=== PATIENT | female | born 1940 | race Caucasian/White ===

== ENCOUNTER → 2016-07-06 | Outpatient (CLI) | payer OTHER, BC | LOC: FIMAGING 10:20 | PROVIDERS: ATTEND Internal Medicine Hematology & Oncology | DX: R92.0 Mammographic microcalcification found on diagnostic imaging of breast (principal); Z86.000 Personal history of in-situ neoplasm of breast | CPT/HCPCS: G0206 ==

== ENCOUNTER → 2016-10-01 | Outpatient (CLI) | payer OTHER, BC | LOC: FIMAGING 09:23 | PROVIDERS: ATTEND Internal Medicine Hematology & Oncology | DX: R92.0 Mammographic microcalcification found on diagnostic imaging of breast (principal); R59.9 Enlarged lymph nodes, unspecified | CPT/HCPCS: G0204 ==

== ENCOUNTER → 2017-01-06 | Outpatient (CLI) | payer OTHER, BC | LOC: FIMAGING 11:19 | PROVIDERS: ATTEND Internal Medicine Hematology & Oncology | DX: Z12.39 Encounter for other screening for malignant neoplasm of breast (principal); R92.0 Mammographic microcalcification found on diagnostic imaging of breast | CPT/HCPCS: 90662; G0008; G0206; G0463 ==

== ENCOUNTER 2017-01-07 23:43 | Observation (INO) | payer OTHER, BC ==
--- NOTE | 2017-01-07 23:47 | EDPHY ---
H & P HPI/ROS: HPI CHIEF COMPLAINT: Chest pain, pleuritic pain HISTORY OF PRESENT ILLNESS: This patient very pleasant 76-year-old female, she does have significant history of hyperlipidemia, breast cancer, Lyme disease, she presents emergency room with chest discomfort. States over the last 7-10 days she has had pain in her chest worse when she takes deep breath in. It is substernal. Sometimes it radiates to her neck and left shoulder. Tonight she was resting. She has been noticing the pain rather frequently. However she took her blood pressure noticed that was elevated 140s over 100. She normally runs 105 systolic. Additionally tells me heart rate is 120. She tells me are rate normally runs 70s. Given the constellation of the symptoms she became concerned and came to the emergency room. She denies productive cough, fever. Does endorse pleuritic pain. Past Medical History: Hyperlipidemia, Lyme disease, breast cancer Past Surgical History: No recent surgery right breast lumpectomy Social History: Denies daily use drugs alcohol tobacco products. Family History: Family history of cardiac disease ROS REVIEW OF SYSTEMS: A comprehensive 10 point review of systems is otherwise negative aside from elements mentioned in the history of present illness. Exam Constitutional triage nursing summary reviewed, vital signs reviewed, awake/ alert. Eyes normal conjunctivae and sclera, EOMI, PERRLA. HENT normal inspection, atraumatic, moist mucus membranes, no epistaxis, neck supple/ no meningismus, no raccoon eyes. Respiratory clear to auscultation bilaterally, normal breath sounds, no respiratory distress, no wheezing. Cardiovascular rate normal, regular rhythm, no murmur, no edema, distal pulses normal. Gastrointestinal soft, non-tender, no rebound, no guarding, normal bowel sounds, no distension, no pulsatile mass. Genitourinary no CVA tenderness. Musculoskeletal no midline vertebral tenderness, full range of motion, no calf swelling, no tenderness of extremities, no meningismus, good pulses, neurovascularly intact. Skin pink, warm, & dry, no rash, skin atraumatic. Neurologic awake, alert and oriented x 3, AAOx3, moves all 4 extremities equally, motor intact, sensory intact, CN II-XII intact, normal cerebellar, normal vision, normal speech. Psychiatric normal mood/affect. Heme/Lymph/Immune no lymphadenopathy. Differential diagnosis includes but is not limited to: ACS, atypical chest pain , pneumothorax, pneumonia, pulmonary embolism, aortic dissection, congestive heart failure, tumor, musculoskeletal pain, esophageal pain, GERD, peptic ulcer disease, pancreatitis Medical Decision Making: Plan for this patient IV establishment full telemetry monitor, obtain EKG rule out acute coronary syndrome, full-dose aspirin, nitroglycerin, D-dimer, chest x-ray. Re-evaluate. Re-evaluation: EKG interpretation by me on record in TE2 system. Impression time of EKG 2358, this is sinus rhythm rate of 89. I do not appreciate any acute ischemic change on this EKG. There is no ST elevation or significant ST depression. ED x-ray chest one view: Image interpreted by myself. No acute cardiopulmonary disease visualize. 0134AM: Re-examination at this time. Patient resting comfortably. Chest pain- free. Blood pressure improved after nitroglycerin. Full-dose aspirin given. EKG is reviewed nonischemic. Negative troponin negative D-dimer. Chest x-ray unremarkable. Plan will be for admission the hospital for further cardiac rule out. Serial EKG serial troponin. Story is somewhat atypical for ACS. However risk factors of family history, age, hyperlipidemia. Patient agreeable on hospital admission. Hospitalist service Dr. Stephens accepts Source: Patient - Personal History Tetanus Vaccine Date: <10yrs - Medical/Surgical History Hx Asthma: No Hx Chronic Respiratory Disease: No Hx Diabetes: No Hx Cardiac Disease: No Hx Renal Disease: No Hx Cirrhosis: No Hx Alcoholism: No Hx HIV/AIDS: No Hx Splenectomy or Spleen Trauma: No Other PMH: BACK SUREGERY - Social History Smoking Status: Former smoker Constitutional: Initial Vital Signs Temperature (C) 36.7 C 01/07/17 23:50 Heart Rate 94 01/07/17 23:50 Respiratory Rate 16 01/07/17 23:50 Blood Pressure 134/83 H 01/07/17 23:50 O2 Sat (%) 92 01/07/17 23:50 O2 Delivery Mode Room Air Allergies/Adverse Reactions: amoxicillin trihydrate [From Augmentin] Allergy (Verified 06/11/10 11:05) bacitracin [Bacitracin] Allergy (Verified 06/11/10 11:05) bacitracin zinc [From Neosporin] Allergy (Verified 06/11/10 11:05) gramicidin D [From Neosporin] Allergy (Verified 06/11/10 11:05) neomycin sulfate [From Neosporin] Allergy (Verified 06/11/10 11:05) polymyxin B [From Neosporin] Allergy (Verified 06/11/10 11:05) polymyxin B sulfate [From Polysporin] Allergy (Verified 06/11/10 11:05) potassium clavula *RETIRED-12/14/11 [From Augmentin] Allergy (Verified 06/11/10 11:05) Home Medications: Medication Instructions Recorded Hydrochlorothiazide 25 04/07/09 Lipitor 10 mg 04/07/09 SYNTHROID 04/07/09 Medical Decision Making - Data Points Laboratory Results: Laboratory Results 01/08/17 00:06 01/08/17 00:06 01/08/17 01/08/17 01/08/17 00:06 00:06 00:06 WBC 6.79 10^3/uL 10^3/uL (3.80-9.50) RBC 4.93 10^6/uL 10^6/uL (4.18-5.33) Hgb 14.6 g/dL g/dL (12.6-16.3) Hct 43.6 % % (38.0-47.0) MCV 88.4 fL fL (81.5-99.8) MCH 29.6 pg pg (27.9-34.1) MCHC 33.5 g/dL g/dL (32.4-36.7) RDW 12.3 % % (11.5-15.2) Plt Count 190 10^3/uL 10^3/uL (150-400) MPV 11.5 fL fL (8.7-11.7) Neut % (Auto) 61.2 % % (39.3-74.2) Lymph % (Auto) 27.8 % % (15.0-45.0) Sunflower % (Auto) 7.4 % % (4.5-13.0) Eos % (Auto) 2.8 % % (0.6-7.6) Baso % (Auto) 0.7 % % (0.3-1.7) Nucleat RBC Rel Count 0.0 % % (0.0-0.2) Absolute Neuts (auto) 4.15 10^3/uL 10^3/uL (1.70-6.50) Absolute Lymphs (auto) 1.89 10^3/uL 10^3/uL (1.00-3.00) Absolute Monos (auto) 0.50 10^3/uL 10^3/uL (0.30-0.80) Absolute Eos (auto) 0.19 10^3/uL 10^3/uL (0.03-0.40) Absolute Basos (auto) 0.05 10^3/uL 10^3/uL (0.02-0.10) Absolute Nucleated RBC 0.00 10^3/uL 10^3/uL (0-0.01) Immature Gran % 0.1 % % (0.0-1.1) Immature Gran # 0.01 10^3/uL 10^3/uL (0.00-0.10) PT 13.0 SEC SEC (12.0-15.0) INR 0.99 (0.83-1.16) APTT 26.9 SEC SEC (23.0-38.0) D-Dimer 0.43 ug/mLFEU ug/mLFEU (0.00-0.50) Sodium 142 mEq/L mEq/L (134-144) Potassium 4.2 mEq/L mEq/L (3.5-5.2) Chloride 105 mEq/L mEq/L (97-110) Carbon Dioxide 25 mEq/l mEq/l (22-31) Anion Gap 12 mEq/L mEq/L (8-16) BUN 32 mg/dL H mg/dL (7-23) Creatinine 0.9 mg/dL mg/dL (0.6-1.0) Estimated GFR > 60 Glucose 106 mg/dL H mg/dL (70-100) Calcium 9.9 mg/dL mg/dL (8.5-10.4) Magnesium 2.0 mg/dL mg/dL (1.6-2.3) Total Bilirubin 0.4 mg/dL mg/dL (0.1-1.4) Conjugated Bilirubin 0.3 mg/dL mg/dL (0.0-0.5) Unconjugated Bilirubin 0.1 mg/dL mg/dL (0.0-1.1) AST 22 IU/L IU/L (14-46) ALT 35 IU/L IU/L (9-52) Alkaline Phosphatase 79 IU/L IU/L (38-126) Creatine Kinase 57 IU/L IU/L (0-156) CK-MB (CK-2) Fraction 0.99 ng/mL ng/mL (0.00-3.19) Troponin I < 0.012 ng/mL ng/mL (0.000-0.034) NT-Pro-B Natriuret Pep 53 pg/mL pg/mL (0-450) Total Protein 7.2 g/dL g/dL (6.3-8.2) Albumin 4.3 g/dL g/dL (3.5-5.0) Lipase 98 IU/L IU/L (23-300) Medications Given: Nitroglycerin (Nitrostat) 0.4 mg SL Q5M PRN PRN Reason: Chest Pain Last Admin: 01/08/17 00:13 Dose: 0.4 mg Discontinued Medications Aspirin (Aspirin) 324 mg PO EDNOW ONE Stop: 01/07/17 23:56 Last Admin: 01/08/17 00:11 Dose: 324 mg Sodium Chloride (Ns) 1,000 mls @ 0 mls/hr IV EDNOW ONE; Wide Open PRN Reason: Protocol Stop: 01/07/17 23:56 Last Admin: 01/08/17 00:12 Dose: 1,000 mls Departure - Departure Disposition: [facility] Inpatient Acute Clinical Impression: Chest pain Qualifiers: Chest pain type: unspecified Qualified Code(s): R07.9 - Chest pain, unspecified Condition: Fair Referrals: Amy Rojas MD [Primary Care Provider] - As per Instructions
[2017-01-07] MEDS ORDERED: NS 1,000 ML IV ONE (23:55)
[2017-01-07] MEDS ORDERED: NITROGLYCERIN 0.4 MG BTL SL PRN (23:55)
[2017-01-07] MEDS ORDERED: ASPIRIN 81 MG CHEWABLE TAB PO ONE (23:55)
--- NOTE | 2017-01-08 00:02 | CPEKG ---
Heart Rate: 89 RR Interval: 674 P-R Interval: 148 QRSD Interval: 84 QT Interval: 356 QTC Interval: 434 P [place]: 70 QRS [place]: 55 T Wave [place]: 36 EKG Severity - NORMAL ECG - EKG Impression: SINUS RHYTHM Electronically Signed By: Logan Gross 08-Jan-2017 07:35:51
[2017-01-08 00:15] LABS: % IMMATURE GRANULYOCYTES 0.1 % (0.0-1.1); ABSOLUTE IMMATURE GRANULOCYTES 0.01 10^3/uL (0.00-0.10); ADD DIFF? NO; ADD MORPH? NO; ADD SCAN? NO; ATYPICAL LYMPHOCYTE FLAG 0 (0-99); FRAGMENT RBC FLAG 0 (0-99); HEMATOCRIT 43.6 % (38.0-47.0); HEMOGLOBIN 14.6 g/dL (12.6-16.3); LEFT SHIFT FLG 0 (0-99); LIPEMIA HEMOLYSIS FLAG 80 (0-99); MEAN CELL HEMOGLOBIN 29.6 pg (27.9-34.1); MEAN CELL HEMOGLOBIN CONCENTR. 33.5 g/dL (32.4-36.7); MEAN CELL VOLUME 88.4 fL (81.5-99.8); MEAN PLATELET VOLUME 11.5 fL (8.7-11.7); PLATELET CLUMPS FLAG 40 (0-99); PLATELET COUNT 190 10^3/uL (150-400); RED BLOOD CELL COUNT 4.93 10^6/uL (4.18-5.33); RED CELL DISTRIBUTION WIDTH 12.3 % (11.5-15.2)
[2017-01-08 00:39] LABS: ALANINE AMINOTRANSFERASE 35 IU/L (9-52); ALBUMIN 4.3 g/dL (3.5-5.0); ALKALINE PHOSPHATASE 79 IU/L (38-126); ANION GAP 12 mEq/L (8-16); ASPARTATE AMINOTRANSFERASE 22 IU/L (14-46); BILIRUBIN,TOTAL 0.4 mg/dL (0.1-1.4); BILIRUBIN-CONJUGATED 0.3 mg/dL (0.0-0.5); BILIRUBIN-UNCONJUGATED 0.1 mg/dL (0.0-1.1); CALCIUM 9.9 mg/dL (8.5-10.4); CARBON DIOXIDE 25 mEq/l (22-31); CHLORIDE 105 mEq/L (97-110); CREATININE 0.9 mg/dL (0.6-1.0); GLOMERULAR FILTRATION RATE > 60; GLUCOSE 106 mg/dL (70-100); POTASSIUM 4.2 mEq/L (3.5-5.2); SODIUM 142 mEq/L (134-144); TOTAL PROTEIN 7.2 g/dL (6.3-8.2)
[2017-01-08 00:44] LABS: INR 0.99 (0.83-1.16)
[2017-01-08 00:45] LABS: APTT 26.9 SEC (23.0-38.0)
[2017-01-08 00:50] LABS: CREATINE KINASE-MB FRACTION 0.99 ng/mL (0.00-3.19); TROPONIN I < 0.012 ng/mL (0.000-0.034)
[2017-01-08] MEDS ORDERED: HYDROCODONE/APAP 5/325 TAB PO PRN (04:18)
[2017-01-08] MEDS ORDERED: ONDANSETRON 4 MG/2 ML VIAL IVP PRN (04:18)
[2017-01-08] MEDS ORDERED: ACETAMINOPHEN 325 MG TAB PO PRN (04:18)
[2017-01-08] MEDS ORDERED: NS 1,000 ML IV SCH (04:30)
--- NOTE | 2017-01-08 05:58 | GHP ---
[f rep st] HISTORY AND PHYSICAL DATE OF ADMISSION: 01/08/2017 SOURCE: Patient provides history, appears reliable. Case discussed with ED provider, and EMR reviewed. CHIEF COMPLAINT: Chest pain. HISTORY OF PRESENT ILLNESS: This is a very pleasant 76-year-old female with past medical history significant for GERD, hypertension, diabetes type 2, and previous history of breast cancer in remission status post lumpectomy and radiation, who presents to the emergency department today with complaints of 7- 10 day history of intermittent chest pain. Initially, symptoms were pleuritic in nature with patient taking deep breaths, which would move around mostly on the right side or the left. In the last 2 days, chest pain has become more substernal with pressure and sharp sensation with deep inspiration. Patient has had increased cough. No fever or chills. And, also concerning the patient more so today, prompting her to present to the emergency department was development of left neck, and left shoulder and arm pain. Patient denies any associated nausea, vomiting, diaphoresis, lower extremity weakness, or orthopnea. Patient states that she did see her PCP and they were concerned that there was possibly a component of reflux ongoing, and was recommended for patient to obtain some [id number] omeprazole. She has not yet had a chance to do a trial to see if this medication would be of assistance to her. Again, given patient's change in her pain to include her neck and left arm, she presented to the emergency department for further evaluation. REVIEW OF SYSTEMS: GENERAL: Patient denies any fevers, chills. No skin rashes. ENT: Patient reports some nasal congestion since arrival to the floor. No sore throat. EYES: Patient denies any acute changes in vision. She does wear progressive lenses. CV: See HPI. RESPIRATORY: Patient does report occasional shortness of breath. She feels possibly related to some postnasal drip. She denies any recent illnesses. No known sick contacts. : No dysuria, hematuria. GI: No nausea, vomiting, and occasional bouts of loose stools or diarrhea at home. MUSCULOSKELETAL: Patient complains of chronic neck and back pain. NEURO: Patient denies any numbness or tingling. No focal weakness. No headache. PSYCH: Patient denies anxiety or depression. ALLERGIES: Amoxicillin and topical antibiotic ointments; patient develops dermatitis. HOME MEDICATIONS: Synthroid, Lipitor 5 mg, HCTZ daily. PAST MEDICAL HISTORY: 1. Significant for hypothyroidism. 2. Hyperlipidemia. 3. History of breast cancer in remission status post lumpectomy and radiation. 4. Lyme disease. 5. Hypercalcemia. PAST SURGICAL HISTORY: Significant for lumbar and cervical spine fusion, right lumpectomy, and a meniscectomy on the right knee. FAMILY HISTORY: Significant for CAD; and mother with history rheumatic heart disease. She is , age 50, due to complications of this. SOCIAL HISTORY: Patient is , lives with her . She drinks only occasional alcohol. No tobacco or drugs. CODE STATUS: Full. Patient with advanced directives amenable to full resuscitation, but does not want prolonged life support. PHYSICAL EXAMINATION: VITALS: On arrival, blood pressure 134/83, heart rate 94 , respiratory rate 16, O2 sat 92% on room air, temperature 36.7. Current vitals available: Blood pressure 132/66, heart rate 92, O2 sat 96% on room air. GENERAL: No acute distress, very pleasant adult female who appears younger than stated age, is resting comfortably in bed. Her is at bedside. HEAD: Normocephalic, atraumatic. EYES: Extraocular muscles are intact. Pupils equal, round and symmetric. No scleral icterus, conjunctival injection. ENT: Mucous membranes appear moist. No pharyngeal erythema or exudates. Dentition is intact. NECK: Supple. Trachea midline. CV: Regular rate and rhythm. There is a 2/6 systolic murmur, greatest in the right sternal border. No rubs or gallops. CHEST: Patient with some tenderness to palpation over the sternum, with patient reports is a sharp pain with more pressure applied and not too dissimilar from her chest pain she has with deep inspiration. RESPIRATORY: Lungs are clear to auscultation bilaterally. Patient with some decreased inspiratory effort. EXTREMITIES: Patient with 1+ pedal pulses. No lower extremity edema. NEURO: Cranial nerves 2 through 12 are intact and symmetric bilaterally. Patient is awake, alert, and oriented x4. Moves all extremities. Strength is intact. PSYCH: Patient's thought process, content, and questions are all appropriate. LABORATORY STUDIES: WBC 6.79, H and H 14.6/43.6, MCV of 88.4, platelet count is 190. Sodium is 142, potassium is 4.2, chloride is 105, CO2 is 25, BUN 32, creatinine 0.9, GFR greater than 60, glucose 106, calcium 9.9, magnesium 2.0, total bili 0.4, ALT 35, AST 22, alk phos is 79. CK is 57, CK-MB 0.99. Troponin is negative. Total protein 7.2, albumin is 4.3. EKG reviewed myself showing normal sinus rhythm in the 80s without any acute ST changes. QTc is 434. Chest x-ray image reviewed myself, report is pending. Single-view without any acute finding, some perihilar prominence bilaterally. ASSESSMENT AND PLAN: A very pleasant 76-year-old female presents with complaints of atypical chest pain. 1. Chest pain. Patient's differential diagnosis including reflux, postnasal drip without any evidence of infectious process versus less likely acute coronary syndrome. Patient will have a troponin repeated this morning. If negative, I have discussed with the patient that her risk factors do put her at a lower to moderate risk for adverse cardiac event. Her heart score was 3. Patient does have sufficient concerns regarding any coronary artery disease. She last had a stress test many years ago. She does have an injury to her right knee with history of meniscectomy. Does not feel she would be appropriate to complete a treadmill stress test and so will order for nuclear medicine stress testing in the morning if her troponin returns negative. 2. Palpitations. Heart rates have been stable in the 80s. Will check a TSH, and continue patient's levothyroxine supplementation if appropriate. 3. Dyspnea. Patient without any evidence of decompensated congestive heart failure, and further evaluation is ongoing as noted above. 4. Left neck and shoulder pain, possibly related to cervical spine and musculoskeletal etiology. Less likely cardiac, based on history. Supportive care and p.r.n. medications for pain. 5. Hypothyroidism. Resume patient's levothyroxine after discharge. 6. Hyperlipidemia. Resume statin at discharge. 7. Fluid, electrolyte, nutrition. Gentle hydration overnight. Electrolytes will be replaced if needed. 8. Diet. Patient will be n.p.o. pending repeat troponin and possible stress. 9. Prophylaxis. Sequential compression devices, Lovenox. DISPOSITION: Patient to be admitted to observation on the medical floor/surg with remote telemetry. Code status is full. Patient's to act as proxy if needed. /[id number]/MODL MTDD
[2017-01-08 06:00] LABS: TROPONIN I < 0.012 ng/mL (0.000-0.034)
[2017-01-08] MEDS ORDERED: LEVOTHYROXINE 50 MCG TAB PO SCH (10:30)
[2017-01-08] MEDS ORDERED: REGADENOSON 0.4 MG/5 ML SYR IVP ONE (10:51)
--- NOTE | 2017-01-08 11:02 | HOSPPROG ---
Hospitalist Progress Note Assessment/Plan: Patient is a 76-year-old female with a past medical history of GERD, hypertension and type 2 diabetes. She also has has a history of breast cancer in remission status post lumpectomy and radiation. She presented to the ER with 7-10 days of intermittent chest pain mainly pleuritic in nature. It is worse with deep breaths. She saw her primary care provider and there was concern she may have had worsening GERD and to get [id number] omeprazole. She had not yet had a chance to do this. She was admitted for further evaluation. Atypical chest pain Troponin x2 has been Negative D-dimer is 0.43, TSH is well nuclear medicine stress today is stable * palpitations occurred during the night last night * dyspnea none further *Likely GERD take Prilosec OTC * left neck and shoulder pain possibly muscular skeletal you etiology able to reproduce the pain with palpation/ it is in the rhomboid area * hypothyroidism, resume Synthroid * hyperlipidemia Statin therapy *Plan : dc home/ reviewed w her the symptoms of a PE/ she has not been tachycardic or hypoxic/ told her if these occur, should see her PCP or come to the ER Subjective: Cecy has no complaints/overall feeling well/ Objective: Vital Signs Temp Pulse Resp BP Pulse Ox 36.6 C 77 15 110/61 94 01/08/17 07:21 01/08/17 07:21 01/08/17 07:21 01/08/17 07:21 01/08/17 07:21 01/07/17 01/08/17 01/09/17 05:59 05:59 05:59 Intake Total 1000 Output Total 0 Balance 1000 PT 13.0 SEC (12.0-15.0) 01/08/17 00:06 INR 0.99 (0.83-1.16) 01/08/17 00:06 - Physical Exam Constitutional: no apparent distress, appears nourished, not in pain Eyes: PERRL Ears, Nose, Mouth, Throat: hearing normal Cardiovascular: regular rate and rhythym Respiratory: no respiratory distress, no rales or rhonchi Skin: warm Musculoskeletal: No no muscle tenderness (rhomboid area) Neurologic: AAOx3 Psychiatric: interacting appropriately, not anxious ICD10 Worksheet Patient Problems: Problems Problem Status Onset Chest pain Acute
--- NOTE | 2017-01-08 12:50 | CPR ---
[f rep st] NONINVASIVE CARDIAC PROCEDURE REPORT DATE OF PROCEDURE: 01/08/2017 TEST PERFORMED: Nuclear Lexiscan stress test. ADMIT DIAGNOSIS: Chest pain. ORDERING PHYSICIAN: Sigrid Stephens, hospitalist. FINDINGS: Resting EKG shows a regular sinus rhythm with T-wave inversion in the anterior septal lead s. No ischemic changes noted. Resting blood pressure 112/64, resting heart rate 83, oxygen saturati on 93. She is asymptomatic prior to testing. TEST PORTION: Lexiscan was injected rapidly, followed by a saline flush. Cardiolite was then injected, followed by saline flush. She did feel flushed with some abdominal discomfort and cramping after the injection. Her stress blood pressure 130/70, peak heart rate 102, oxygen saturation 97%. No EKG changes. RESTING RECOVERY PORTION: EKG stable. Blood pressure 122/70, heart rate 94 and regular, oxygen saturation 98%. Symptoms have subsided after caffeine given. At this time, she currently is stable for nuclear imaging. /[id number]/MODL
[2017-01-08 15:17] VITALS: BP 126/83; PULSE 71; RESP 20; TEMP 98; O2SAT 97
--- NOTE | 2017-01-08 16:46 | GDS ---
[f rep st] DISCHARGE SUMMARY DISCHARGE DIAGNOSES: 1. Atypical chest pain. 2. Palpitations. 3. Dyspnea. 4. Likely gastroesophageal reflux disease. 5. Left neck and shoulder pain, most likely musculoskeletal in origin. 6. Hypothyroidism. 7. Hyperlipidemia. HISTORY OF PRESENT ILLNESS: Briefly, the patient is a 76-year-old female with a past medical history of GERD, hypertension, and type 2 diabetes. She also has a history of breast cancer in remission, s tatus post lumpectomy and radiation. She presented to the emergency room with 7-10 days of intermitt ent chest pain, mainly pleuritic in nature. It was worse with deep breaths. She saw her primary car e provider, and there was concern she had worsening GERD and was instructed to get [id number]-[id number] o meprazole. She had not had a chance to do this. During the night, she had awoken, and she felt her heart was racing. She used her 's blood pressure cuff and noticed that her blood pressure was elevated and her heart rate was in the low 100s. She became concerned and came to the ER for furthe r evaluation. HOSPITAL COURSE PER PROBLEMS: 1. Atypical chest pain. Troponin was checked x2. This was negative. D-dimer is 0.43. TSH is stab le. She had a myocardial perfusion scan performed, which showed a normal left ventricle, EF of 91%. She has no focal wall abnormalities. No definite ischemic or infarct. She will go home today and d o a trial of a PPI. Also reviewed with her that there is a chance she could have a PE, even with a n ormal D-dimer, but she felt her pain was more muscular. If she gets tachycardic and/or hypoxic, woul d recommend considering a CTA to rule out a pulmonary emboli. 2. Palpitations. 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 She has been in sinus rhythm without any type of tachycardia. 3. Dyspnea. No complaints. 4. Likely GERD. To do a trial of Prilosec, over the counter. Recommending she take 40 mg instead o f the 20 mg. 5. Left neck and shoulder pain. This is mostly musculoskeletal. I am able to reproduce it in the r homboid area. 6. Hypothyroidism, on Synthroid. 7. Hyperlipidemia, on statin therapy. DISCHARGE CONDITION: Stable. Blood pressure is 110/61, O2 saturation on room air 94%, pulse is 77, respiratory rate is 15, temp is 36.6 Celsius. MEDICATIONS AT DISCHARGE: Please see the EMR. DISCHARGE INSTRUCTIONS: 1. To follow up with Dr. Rojas in the next week or two. 2. If she develops continued chest pain, shortness of breath, return to the ER. /[id number]/MODL
--- NOTE | 2017-01-08 17:42 | ASDISCHSUM ---
Discharge Information Plan Status:Home with No Needs Medically Cleared to Leave: Discharge Date:01/08/2017 03:40 PM CM D/C Disposition:Home, Routine, Self-Care ADT D/C Disposition:Home, Routine, Self-Care Projected Discharge Date:01/08/2017 03:40 PM Transportation at D/C: Discharge Delay Reason: Follow-Up Date:01/08/2017 03:40 PM Discharge Slot: Final Diagnosis: Placement Information Patient Contact Information Contact Name:GOPI Relationship: Address:[address] [place]:[facility] Phone: [facility] Code:[place] [id number] Email: Financial Information Financial Class: Primary Plan Desc:MEDICARE OUTPATIENT Primary Plan Number:[id number] Secondary Plan Desc: [facility] Secondary Plan Number:[id number] Assessment Information Intervention Information Intervention Type:*LANZA-Signed Date of Service:01/08/2017 09:15 AM Patient Type:Observation Staff Member:Shwetha Salgado Hours: Discipline: Severity: Comment:
[2017-01-08] MEDS ORDERED: ATORVASTATIN CALCIUM 10 MG TAB PO SCH (21:00)
[2017-01-09] MEDS ORDERED: MULTIVITAMINS 1 EACH TAB PO SCH (09:00)
[2017-01-09] MEDS ORDERED: GLUCOSAMINE/CHONDROITIN CAP PO SCH (09:00)
[2017-01-09] MEDS ORDERED: CALCIUM CARB W/VIT D 500 MG TAB PO SCH (09:00)
[2017-01-09] MEDS ORDERED: OMEGA-3 FATTY ACIDS 1,000 MG CAP PO SCH (09:00)
[2017-01-10] MEDS ORDERED: HYDROCHLOROTHIAZIDE 12.5 MG CAP PO SCH (09:00)
== END 2017-01-08 15:40 | disposition home or self-care (01) ==
LOC: F3E 01-08 02:24
PROVIDERS: ADMIT Family Medicine; ATTEND Internal Medicine
DX: R07.9 Chest pain, unspecified (principal); R00.2 Palpitations; R06.00 Dyspnea, unspecified; M54.2 Cervicalgia; M25.512 Pain in left shoulder; E03.9 Hypothyroidism, unspecified; E78.5 Hyperlipidemia, unspecified; E11.9 Type 2 diabetes mellitus without complications
CPT/HCPCS: 71010; 78452; 93005; 93017; A9500; G0378; J2785

== ENCOUNTER → 2017-01-18 | Outpatient (CLI) | payer OTHER, BC | LOC: CIMAGING 09:17 | PROVIDERS: ATTEND Internal Medicine | DX: R10.816 Epigastric abdominal tenderness (principal); R19.7 Diarrhea, unspecified; K21.9 Gastro-esophageal reflux disease without esophagitis ==

== ENCOUNTER 2017-03-10 08:24 | Day surgery (SDC) | payer OTHER, BC ==
[2017-03-10] MEDS ORDERED: LR 1,000 ML IV ONE (08:48)
--- NOTE | 2017-03-10 09:47 | PDGENHP ---
History & Physical Chief Complaint: epi pain History of Present Illness: improved with PPI snd H2RA Pertinent Past, Social, Family History: no tobacco, rare alcohol. fhx - father side aunt breast CA, GF = gi cancer Relevant Physical Exam: A+Ox3. CTA. S1S2. +BS,. soft, nt Cardiorespiratory Assessment: class 2 pt
--- NOTE | 2017-03-10 09:47 | PDPROPOC ---
Sedation Plan of Care Sedation Plan of Care: mental status noted, patient educated of risks, benefits , alternatives, patient can tolerate sedation ASA Classification: ASA 2 Planned drugs: fentanyl, midazolam Mallampati Score: Class 2 Mallampati Reference Image: 2 Patient passed 3-3-2 rule?: Yes (3,3,2)
[2017-03-10] MEDS ORDERED: fentaNYL 100 MCG/2 ML INJ ONE (09:49)
[2017-03-10] MEDS ORDERED: MIDAZOLAM 2 MG/2 ML VIAL ONE (09:49)
--- NOTE | 2017-03-10 10:14 | POSTOPPROG ---
Post Op Note Date of Operation: 03/10/17 Surgeon: Washington Lim Anesthesia: IV Sedation (versed 3mg IV fentanyl 75 mcg IV) Pre-op Diagnosis: epi pain Post-op Diagnosis: gastritis, small gastric polyps (not worrisome) Indication: epi pain, gerd Procedure: egd and bx Findings: nml esoph, small gastric polyps, antral gastritis, nml duodenum Inf/Abcess present in the surg proc area at time of surgery?: No EBL: Minimal (few ml from bx) Total fluids administered: 400 ML LR Complications: none immediate
[2017-03-10 10:29] VITALS: RESP 16; TEMP 96.8
--- NOTE | 2017-03-10 10:37 | GIREPORT ---
[facility] - Endoscopy Department Patient Name: Cecy Metcalf Procedure Date: 03/10/2017 9:45 AM Patient Type: Outpatient Attending MD/ ER Physician: Evaristo Britton Procedure: Upper GI endoscopy Indications: Epigastric abdominal pain, Nausea with vomiting Providers: Rufus Lim MD Referring MD: Amy Rojas MD Medicines: Fentanyl 75 micrograms IV, Midazolam 3 mg IV Complications: No immediate complications. Estimated blood loss: Minimal. Description of Procedure: After obtaining informed consent, the endoscope was passed under direct vision. Throughout the procedure, the patient's blood pressure, pulse, and oxygen saturations were monitored continuously. The Endoscope was intro duced through the mouth, and advanced to the third part of duodenum. The uppe r GI endoscopy was accomplished without difficulty. The patient tolerated th e procedure well. Findings: The examined esophagus was normal. Scattered mild inflammation characterized by erythema and granularity w as found in the gastric antrum. Biopsies were taken with a cold forceps fo r histology. Estimated blood loss was minimal. Multiple diminutive sessile polyps with no stigmata of recent bleeding were found in the gastric fundus and on the greater curvature of the stomach . The polyp was removed with a piecemeal technique using a cold biopsy forcep s. Resection and retrieval were complete. Estimated blood loss was minimal . A deformity was found at the incisura. The examined duodenum was normal. The exam was otherwise without abnormality. Estimated Blood Loss: Estimated blood loss was minimal. Post Op Diagnosis: - Normal esophagus. - Gastritis. Biopsied. - Multiple gastric polyps. Resected and retrieved. 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 Query extrinsic compression? see photo number 7 - Normal examined duodenum. - The examination was otherwise normal. Recommendation: - Await pathology results. - My office will call with the pathology result with 5-7 days. If you h ave not heard from my office by -14, do not assume the pathology is maribel l, please call [phone] to get the pathology results. - Follow an antireflux regimen. - Use Aciphex (rabeprazole) 20 mg PO daily. - Use Zantac (ranitidine) 300 mg PO at bedtime. - In April, try to decrease Ranitidine to 150mg PO QHS. If does well, try to decrease Aciphex to every other day. - The correct amount of medication is the least amount that controls he r symptoms. - Perform an abdominal ultrasound at appointment to be scheduled. - Patient has a contact number available for emergencies. The signs and symptoms of potential delayed complications were discussed with the johnny marinelli. Return to normal activities tomorrow. Written discharge instructions we re provided to the patient. - Continue present medications. - Discharge patient to home (ambulatory). - Return to primary care physician as previously scheduled. - Return to endoscopist in 10 weeks. - Thank you for allowing me to help in your patient's care. Do not hesi chavez to call with any questions. Attending Participation: I personally performed the entire procedure. Carina Hooper M.D Rufus Lim MD 03/10/2017 10:37:01 AM This report has been signed electronicallyMathew MD Carina Number of Addenda: 0 Note Initiated On: 03/10/2017 9:45 AM [email or web address]
[2017-03-10 10:46] VITALS: PULSE 68
[2017-03-10 10:47] VITALS: BP 104/50; O2SAT 97
== END 2017-03-10 11:16 | disposition home or self-care (01) ==
LOC: FSGY 08:24
PROVIDERS: ATTEND Internal Medicine Gastroenterology
PROC: 0DB68ZX Excision of Stomach, Via Natural or Artificial Opening Endoscopic, Diagnostic (ICD-10-PCS; principal; 2017-03-10 09:45)
DX: K29.50 Unspecified chronic gastritis without bleeding (principal); K21.0 Gastro-esophageal reflux disease with esophagitis
CPT/HCPCS: J2250; J3010

== ENCOUNTER → 2017-03-24 | Outpatient (CLI) | payer OTHER, BC | LOC: FIMAGING 07:59 | PROVIDERS: ATTEND Internal Medicine Gastroenterology | DX: R10.13 Epigastric pain (principal) ==

== ENCOUNTER → 2017-03-31 | Outpatient (CLI) | payer OTHER, BC | LOC: FIMAGING 17:16 | PROVIDERS: ATTEND Emergency Medicine | DX: R05 Cough (principal); Z85.3 Personal history of malignant neoplasm of breast | CPT/HCPCS: 71020; G0463 ==

== ENCOUNTER → 2017-07-21 | Outpatient (CLI) | payer OTHER, BC | LOC: FIMAGING 11:21 | PROVIDERS: ATTEND Internal Medicine Hematology & Oncology | DX: R92.8 Other abnormal and inconclusive findings on diagnostic imaging of breast (principal); Z85.3 Personal history of malignant neoplasm of breast ==

== ENCOUNTER → 2017-11-19 | Outpatient (CLI) | payer OTHER, BC ==
[~2017-11-19] MED LIST: IOPAMIDOL (ISOVUE-300) 100 ML BTL ONE
== END ==
LOC: CIMAGING 11:21
PROVIDERS: ATTEND Internal Medicine
DX: N28.9 Disorder of kidney and ureter, unspecified (principal)
CPT/HCPCS: 74170; Q9967

== ENCOUNTER → 2018-04-26 | Outpatient (CLI) | payer OTHER, BC | LOC: FIMAGING 08:56 | PROVIDERS: ATTEND Internal Medicine Hematology & Oncology | DX: Z12.31 Encounter for screening mammogram for malignant neoplasm of breast (principal) ==